=== PATIENT | male | born 1990 | race Asian ===

== ENCOUNTER → 2023-05-19 09:33 | Outpatient (REF) | payer BC, SELFPAY | LOC: DHCBS MAIN 09:33 | PROVIDERS: ATTENDING PHYSICIAN Internal Medicine Cardiovascular Disease; FAMILY PHYSICIAN Nurse Practitioner Family | DX: I49.8 Other specified cardiac arrhythmias (principal); R00.2 Palpitations | CPT/HCPCS: 93306 ==

== ENCOUNTER → 2024-06-19 15:13 | Outpatient (REF) | payer BC, SELFPAY | LOC: CLAB 15:13 | PROVIDERS: ATTENDING PHYSICIAN Surgery | DX: D17.30 Benign lipomatous neoplasm of skin and subcutaneous tissue of unspecified sites (principal) | CPT/HCPCS: 88304 ==